=== PATIENT | male | born 1975 | race Caucasian/White ===

== ENCOUNTER → 2021-01-12 18:11 | Emergency (ER) | payer OTHER ==
[~2021-01-12 18:11] MED LIST: DICLOFENAC SODI75 MG PO
== END | disposition home or self-care (01) ==
LOC: FER 18:11
DX: S56.212A Strain of other flexor muscle, fascia and tendon at forearm level, left arm, initial encounter (principal); I10 Essential (primary) hypertension; X50.9XXA Other and unspecified overexertion or strenuous movements or postures, initial encounter; Y92.89 Other specified places as the place of occurrence of the external cause; Y99.0 Civilian activity done for income or pay; Z79.899 Other long term (current) drug therapy
CPT/HCPCS: 73080; 96372; J1885